=== PATIENT | male | born 1965 | race Caucasian/White ===

== ENCOUNTER 2017-12-22 16:11 | Inpatient (IN) | payer SELFPAY ==
[2017-12-22] VITALS (16 sets, daily range): BP systolic 74–129; BP diastolic 39–102
[~2017-12-22] VITALS: Ht 193 cm; Wt 115.3 kg
--- NOTE | ~2017-12-22 | PR ---
[place], [place] PROGRESS NOTE NAME: ANDERSON OGLESBY UNIT #: [id number] ROOM: [facility] DOCTOR: CINDY VINES MD BIRTHDATE: [birth year] DOS: 12/23/2017 SUBJECTIVE: Atrial fibrillation with rapid ventricular response. The patient is still tachycardic despite of receiving digoxin and metoprolol. OBJECTIVE: GENERAL APPEARANCE: The patient is alert and oriented x 3, in no visible distress. VITAL SIGNS: Blood pressure 108/41, heart rate 116 beats per minute, breathing 28 times per minute, temperature 98 degrees Fahrenheit. HEENT AND NECK: Exam within normal limits. CARDIOVASCULAR SYSTEM: Heart rate is regular in rate and rhythm. S1 and S2 normally audible. LUNGS: Clear to auscultation. ABDOMEN: Soft, nontender. No obvious organomegaly. Bowel sounds are present. EXTREMITIES: Without significant cyanosis or edema. IMPRESSION AND PLAN: 1. The patient with atrial fibrillation with rapid ventricular response. He is tachycardic even with digoxin and metoprolol. Medication is being adjusted by Dr. Lugo . The patient remains in ICU. 2. Free T4 level was normal. Normal serum electrolytes and chest x-ray are not showing congestive heart failure. CINDY VINES MD CM:PNTRANS [id number] CINDY VINES MD 12/24/17 0010 interface
--- NOTE | ~2017-12-22 | PR ---
[place], [place] PROGRESS NOTE NAME: ANDERSON OGLESBY UNIT #: [id number] ROOM: [facility] DOCTOR: JASMYN GARCIA,CINDY Nuñez BIRTHDATE: [birth year] DOS: 12/24/2017 SUBJECTIVE: The patient is feeling somewhat better, still remains in the ICU. OBJECTIVE: VITAL SIGNS: Blood pressure 112/69, breathing 20 times per minute, heart rate ranging between 80 to 110 beats per minute. GENERAL APPEARANCE: The patient is alert and oriented x 3, in no visible distress. HEENT AND NECK: Exam within normal limits. CARDIOVASCULAR SYSTEM: Heart rate is regular in rate and rhythm. S1 and S2 normally audible. LUNGS: Clear to auscultation. ABDOMEN: Soft, nontender. No obvious organomegaly. Bowel sounds are present. EXTREMITIES: Without significant cyanosis or edema. IMPRESSION: 1. The patient with atrial fibrillation with rapid ventricular response, status post cardioversion. He is in sinus rhythm now with some sinus dysrhythmia. 2. Severe cardiomyopathy which could be from tachycardia, left ventricular ejection fraction of only 15%. Case discussed with his assigner, Dr. Lugo, today. CINDY VINES MD CM:PNTRANS [phone] CINDY VINES MD 12/25/17 0019 interface
--- NOTE | ~2017-12-22 | WRIGHTHP ---
[place], [place] PATIENT HISTORY AND PHYSICAL EXAM NAME: ANDERSON OGLESBY [facility] #: [id number] UNIT #: [id number] ROOM: [facility] DOCTOR: CINDY VINES MD BIRTHDATE: [birth year] DOS: 12/22/2017 HISTORY OF PRESENT ILLNESS: The patient is a 52-year-old gentleman with a past medical history of congestive heart failure, atrial fibrillation for a short time many years ago, presented to my office with increasing shortness of breath with exertion and a chest x-ray result showing congestive heart failure. The patient was started on 20 mg of Lasix by different physicians, which he was taking. In the office, he had no complaints of chest pain, no fainting episode, no other GI or urinary symptoms, no palpitation. REVIEW OF SYSTEMS: LUNGS: Increased shortness of breath and dyspnea on exertion. GASTROINTESTINAL: No nausea, vomiting, diarrhea or constipation. CARDIOVASCULAR: No chest pain or palpitations. FAMILY HISTORY: Noncontributory. SOCIAL HISTORY: He is . Denies smoking cigarettes, alcohol and drug abuse. HOME MEDICATIONS: Lasix 20 mg a day. PHYSICAL EXAMINATION: GENERAL: Alert and oriented x 3, in no visible distress. HEENT AND NECK: Extraocular movements are intact. Sclerae are anicteric. Oral mucosa is moist and clean. No obvious facial weakness. Neck is supple without any lymphadenopathy. No thyromegaly. No JVD. No carotid arterial bruits. LUNGS: Clear to auscultation. No wheezing. No rhonchi. CARDIOVASCULAR SYSTEM: Heart rate irregularly irregular in rate and rhythm with a heart rate of about 200 beats per minute. ABDOMEN: Soft, nontender. No obvious organomegaly. Bowel sounds are present. No obvious herniation. EXTREMITIES: Without significant cyanosis or edema. Warm to touch. CENTRAL NERVOUS SYSTEM: Alert and oriented x 3. Cranial nerves II-XII are intact. Speech is normal. The patient is able to move all extremities. Normal muscle strength. Deep tendon reflexes are equal on both sides. Plantars were downgoing. LABORATORY DATA: Chest x-ray was normal. Normal serum electrolytes. Normal CBC. IMPRESSION AND PLAN: 1. The patient presenting with acute atrial fibrillation with rapid ventricular response, being controlled with IV verapamil and the patient also given IV Lopressor and started on anticoagulation with Lovenox. Dr. Lugo, the radio time salesperson is following the patient and he is being closely monitored in the ICU to control his heart rates. An echocardiogram will be checked. 2. Past history of generalized seizures when he was 7 years old, but not [place], [place] PATIENT HISTORY AND PHYSICAL EXAM NAME: ANDERSON OGLESBY UNIT #: [id number] ROOM: [facility] DOCTOR: CINDY VINES MD BIRTHDATE: [birth year] recently. CINDY VINES MD CM:HISPHYS:PATIENT HISTORY AND PHYSICAL EXAMINATION 05 32 CINDY VINES MD 12/22/172131 interface
--- NOTE | ~2017-12-22 | PR ---
[place], [place] PROGRESS NOTE NAME: ANDERSON OGLESBY UNIT #: [id number] ROOM: [facility] DOCTOR: OBI MALLOY MD BIRTHDATE: [birth year] DOS: SUBJECTIVE: The patient went back into rapid AFib yesterday afternoon, was transferred back to the ICU after amiodarone drip was started. This morning, he looks side and upset about what happened. He denies having any chest pains or palpitation. He does have some headaches post-cardioversion for which he did receive Demerol during the night. OBJECTIVE: VITAL SIGNS: Graphic trend shows blood pressure 80/50, pulse of 117, respirations 22, temperature 96.3. LUNGS: Diminished breath sounds. No wheezes, rales or rhonchi heard. HEART: Irregular heart rate in 120s. ABDOMEN: Obese, soft. EXTREMITIES: Without any edema. ASSESSMENT AND PLAN: 1. Chronic atrial fibrillation with rapid ventricular response, being managed with amiodarone and Lovenox and Toprol. The patient continues to be in atrial fibrillation, but hopefully will have a better rate control with the Cordarone. 2. Cardiomyopathy, possibly from underlying atrial fibrillation. He is already on BREE inhibitors and Aldactone and aspirin. 3. Ischemia workup to be done. The patient will have a cardiac catheterization sometime next week. OBI MALLOY MD CM:PNTRANS 0728 [id number] OBI MALLOY MD 12/26/17 1450 interface
[2017-12-22] MEDS ORDERED: LASIX40 MG PO (16:21)
[2017-12-22 16:29] LABS: BASO # 0.1 10*3/uL (0.0-0.1); BASO % 0.6 % (0.0-1.0); EOS # 0.2 10*3/uL (0.0-0.4); EOS % 2.1 % (1.0-4.0); HEMATOCRIT 49.7 % (42.0-52.0); HEMOGLOBIN 16.3 g/dl (14.0-18.0); LYMPH # 3.4 10*3/uL (1.3-4.4); LYMPH % 34.3 % (27.0-41.0); MEAN CELL VOLUME 84.5 fl (80.0-94.0); MEAN CORPUSCULAR HGB 27.7 pg (27.0-31.0); MEAN CORPUSCULAR HGB CONC 32.8 g/dl (33.0-37.0); MEAN PLATELET VOLUME 11.3 fl (9.6-12.3); MONO # 0.9 10*3/uL (0.1-1.0); MONO % 8.7 % (3.0-9.0); NEUT # 5.3 10*3/uL (2.3-7.9); NEUT % 54.1 % (47.0-73.0); PLATELET COUNT AUTOMATED 231 10*3/uL (130-400); RED BLOOD COUNT 5.88 10*6/uL (4.50-5.90); RED CELL DISTRI WIDTH 14.3 % (0-14.5); WHITE BLOOD COUNT 9.9 10*3/uL (4.8-10.8)
[2017-12-22 16:42] LABS: ACT PARTIAL THROMBO TIME 25.6 SECONDS (20.8-31.5)
[2017-12-22 16:45] LABS: ALBUMIN 4.4 gm/dl (3.1-4.5); ALKALINE PHOSPHATASE 101 U/L (45-117); BUN 21 mg/dl (7-24); CHLORIDE 105 mmol/L (98-107); CREATININE 1.03 mg/dL (0.70-1.30); POTASSIUM 4.2 mmol/L (3.5-5.1); SGOT/AST 21 IU/L (3-35); SGPT/ALT 32 U/L (12-78); SODIUM 138 mmol/L (136-145); TOTAL PROTEIN 7.6 gm/dL (6.4-8.2)
[2017-12-22 16:47] LABS: TROPONIN I < 0.015 ng/ml (<0.045)
[2017-12-23] VITALS: BP 100/61
[2017-12-23 04:00] VITALS: BP 95/71
[2017-12-23 07:53] VITALS: BP 98/80
[2017-12-23 12:00] VITALS: BP 108/60
[2017-12-23 16:00] VITALS: BP 108/41
[2017-12-23 20:00] VITALS: BP 119/72
[2017-12-24] VITALS: BP 117/82
[2017-12-24 04:00] VITALS: BP 98/74
[2017-12-24 08:00] VITALS: BP 111/78
[2017-12-24 08:18] LABS: BASO # 0.1 10*3/uL (0.0-0.1); BASO % 0.8 % (0.0-1.0); EOS # 0.2 10*3/uL (0.0-0.4); EOS % 2.7 % (1.0-4.0); HEMATOCRIT 50.5 % (42.0-52.0); HEMOGLOBIN 16.3 g/dl (14.0-18.0); LYMPH # 2.4 10*3/uL (1.3-4.4); LYMPH % 32.9 % (27.0-41.0); MEAN CELL VOLUME 85.3 fl (80.0-94.0); MEAN CORPUSCULAR HGB 27.5 pg (27.0-31.0); MEAN CORPUSCULAR HGB CONC 32.3 g/dl (33.0-37.0); MEAN PLATELET VOLUME 11.1 fl (9.6-12.3); MONO # 0.6 10*3/uL (0.1-1.0); MONO % 7.5 % (3.0-9.0); NEUT # 4.1 10*3/uL (2.3-7.9); PLATELET COUNT AUTOMATED 203 10*3/uL (130-400); RED BLOOD COUNT 5.92 10*6/uL (4.50-5.90); RED CELL DISTRI WIDTH 14.1 % (0-14.5); WHITE BLOOD COUNT 7.3 10*3/uL (4.8-10.8)
[2017-12-24 08:46] LABS: BUN 17 mg/dl (7-24); CHLORIDE 108 mmol/L (98-107); CREATININE 0.89 mg/dL (0.70-1.30); POTASSIUM 4.2 mmol/L (3.5-5.1); SODIUM 142 mmol/L (136-145)
[2017-12-24 12:00] VITALS: BP 119/62
[2017-12-24 16:00] VITALS: BP 112/69
[2017-12-24 20:00] VITALS: BP 116/70
[2017-12-25] VITALS: BP 112/73
[2017-12-25 04:00] VITALS: BP 104/79
[2017-12-25 08:00] VITALS: BP 109/71
[2017-12-25 16:00] VITALS: BP 104/64
[2017-12-25 20:00] VITALS: BP 104/83
[2017-12-25 21:45] VITALS: BP 120/88
[2017-12-26] VITALS (7 sets, daily range): BP systolic 80–145; BP diastolic 50–82
[2017-12-26 09:00] LABS: BASO % 0.5 % (0.0-1.0); EOS % 0.5 % (1.0-4.0); HEMOGLOBIN 16.3 g/dl (14.0-18.0); LYMPH # 1.7 10*3/uL (1.3-4.4); LYMPH % 18.9 % (27.0-41.0); MEAN CELL VOLUME 83.8 fl (80.0-94.0); MEAN CORPUSCULAR HGB 27.9 pg (27.0-31.0); MEAN CORPUSCULAR HGB CONC 33.3 g/dl (33.0-37.0); MEAN PLATELET VOLUME 10.8 fl (9.6-12.3); MONO # 0.5 10*3/uL (0.1-1.0); MONO % 6.1 % (3.0-9.0); NEUT # 6.5 10*3/uL (2.3-7.9); NEUT % 73.7 % (47.0-73.0); PLATELET COUNT AUTOMATED 206 10*3/uL (130-400); RED BLOOD COUNT 5.85 10*6/uL (4.50-5.90); WHITE BLOOD COUNT 8.8 10*3/uL (4.8-10.8)
[2017-12-26 09:33] LABS: BUN 18 mg/dl (7-24); CHLORIDE 105 mmol/L (98-107); POTASSIUM 4.2 mmol/L (3.5-5.1); SODIUM 138 mmol/L (136-145)
== END 2017-12-26 11:02 | disposition short-term general hospital (02) | DRG 308 ==
LOC: ED 16:11 → EDHOLD 16:55 → ICCU 16:55 → 4E 12-25 11:50 → ICCU 12-26 05:09
PROVIDERS: Emergency Medicine; Internal Medicine Cardiovascular Disease
PROC: 5A2204Z Restoration of Cardiac Rhythm, Single (ICD-10-PCS; principal; 2017-12-24)
PROC: B24BZZ4 Ultrasonography of Heart with Aorta, Transesophageal (ICD-10-PCS; principal; 2017-12-24)
DX: I48.0 Paroxysmal atrial fibrillation (principal); I50.43 Acute on chronic combined systolic (congestive) and diastolic (congestive) heart failure; I95.9 Hypotension, unspecified; I42.0 Dilated cardiomyopathy; Z79.899 Other long term (current) drug therapy; Z82.49 Family history of ischemic heart disease and other diseases of the circulatory system; Z79.01 Long term (current) use of anticoagulants

== ENCOUNTER 2018-01-07 16:13 | Inpatient (IN) | payer SELFPAY ==
[2018-01-07] VITALS (8 sets, daily range): BP systolic 70–121; BP diastolic 0–86
[~2018-01-07] VITALS: Ht 193 cm; Wt 107.1 kg
--- NOTE | ~2018-01-07 | PR ---
[place], [place] PROGRESS NOTE NAME: ANDERSON OGLESBY UNIT #: [id number] ROOM: 402 DOCTOR: OBI MALLOY MD BIRTHDATE: [birth year] DOS: 01/09/2018 SUBJECTIVE: The patient is about the same, does not have any new complaints. OBJECTIVE: VITAL SIGNS: Graphic trend shows a pressure of 92/54 at 4:00 a.m., pulse of 89, respirations 20, temperature 97. LUNGS: Diminished breath sounds, clear. HEART: Irregular. ABDOMEN: Obese. EXTREMITIES: Without any edema. ASSESSMENT AND PLAN: 1. Hypotension from medications, which is resolved. 2. Atrial fibrillation with rapid ventricular response, on digoxin and metoprolol. Dosage being adjusted by Cardiology. The patient to be discharged when Cardiology okays. OBI MALLOY MD CM:PNTRANS [phone] OBI MALLOY MD 01/09/18 2310 interface
--- NOTE | ~2018-01-07 | PR ---
[place], [place] PROGRESS NOTE NAME: ANDERSON [facility]GLESBY [facility] [id number] UNIT #: [id number] ROOM: 402 DOCTOR: KARUNA MOSQUEDA MD BIRTHDATE: [birth year] DOS: 01/10/2018 REASON FOR VISIT: Congestive heart failure and atrial fibrillation. HISTORY OF PRESENT ILLNESS: The patient is feeling better, still somewhat short of breath. He is not ambulating except to the bathroom. No PND, no orthopnea. No chest pain, no palpitation or dizziness. REVIEW OF SYSTEMS: Review of the 10 systems negative except as mentioned above. RHYTHM STRIPS: The patient in atrial fibrillation with occasional rapid ventricular rate. PHYSICAL EXAMINATION: VITAL SIGNS: Blood pressure 104/79, pulse 99, respiratory rate 16. GENERAL: Alert, comfortable, in no acute distress. HEENT: Pupils are round and equal. No jaundice. NECK: Supple. No distinct mass, no carotid bruit. CHEST: Symmetrical, nontender. LUNGS: A few scattered rhonchi, but good air entry bilaterally. HEART: Irregularly irregular, grade 1/6 systolic murmur. ABDOMEN: Benign, nontender. Bowel sounds normal. EXTREMITIES: Showed 1+ edema. Distal pulses palpable. SKIN: Warm and dry. No cyanosis, no clubbing. RECTAL: Deferred. GENITOURINARY: Deferred. MUSCULOSKELETAL: No joint tenderness or swelling. PSYCHIATRIC: The patient is alert, oriented with good mood and affect. NEUROLOGIC: The patient is alert, oriented. No focal neurologic deficit. Labs and medications reviewed. IMPRESSION: 1. Acute on chronic systolic heart failure, improving. 2. Coronary artery disease, status post LAD stent in November 2017. 3. Acute renal failure, resolved. 4. Atrial fibrillation with rapid ventricular rate. 5. Hypotension, mostly resolved. RECOMMENDATIONS: 1. Continue current medications. His Toprol was increased to 50 b.i.d. today. Continue his digoxin, aspirin plus Brilinta and Effient. Blood pressure is stable. Add low dose BREE inhibitor, lisinopril 2.5 mg. The patient was on lisinopril in the past before he was started on Entresto. 2. Possible discharge home tomorrow. 3. The risks and benefits of the LifeVest was discussed and the patient is interested. We will contact the LifeVest vendor due to his risk of sudden cardiac . 4. Potential discharge tomorrow, if her heart rate and blood pressure is stable. [place], [place] PROGRESS NOTE NAME: ANDERSON OGLESBY UNIT #: [id number] ROOM: 402 DOCTOR: JAYLIN GARCIA,KARUNA BIRTHDATE: [birth year] 5[address] Follow with Dr. Allen and also Dr. Lou in [place]. 6. Above treatment was discussed with the patient and his who is at bedside and all questions were answered. KARUNA MOSQUEDA MD CM:LAYLA 41 [phone] KARUNA MOSQUEDA MD 01/11/18 0252 interface
--- NOTE | ~2018-01-07 | DS ---
[place], [place] DISCHARGE SUMMARY NAME: ANDERSON OGLESBY [facility] [id number] UNIT #: [id number] ROOM: 402 DOCTOR: OBI MALLOY MD BIRTHDATE: [birth year] DOS: 01/11/2018 DIAGNOSES: 1. Hypotension from medications. 2. Acute kidney injury from medications. 3. Atrial fibrillation, chronic. 4. Cardiomyopathy with cardiac catheterization and stent placement. HOSPITAL COURSE: The patient is known to me. The patient was seen by Dr. Barahona in his office and was found to be quite hypotensive and was transferred to the Emergency Room. After being evaluated in the ER, he was found to have acute kidney injury, possibly from Entresto and he was admitted. After admission, most of his medications were discontinued and he was given IV fluids. His metoprolol was restarted at a later time because of his rapid heart rate and his chronic AFib. Digoxin is also ordered. The patient is stable and improving. He was continued in the Eliquis and Brilinta for the recent stent placement. Blood pressures normalized and his kidney functions improved, so on 01/09/2018 the patient is stable and was discharged to home to be followed up as an outpatient by Dr. Barahona and Cardiology. DISCHARGE MEDICATIONS: Eliquis 5 mg b.i.d., aspirin 81 daily, CoQ10 200 daily, Lasix 20 daily, metoprolol 100 b.i.d., simvastatin 40 daily and digoxin 0.125 mg daily. OBI MALLOY MD CM:DISCHARG [phone] OBI MALLOY MD 01/19/18 1520 interface
--- NOTE | ~2018-01-07 | PR ---
[place], [place] PROGRESS NOTE NAME: [facility]GL[facility]BY [id number] UNIT #: [id number] ROOM: 402 DOCTOR: KARUNA MOSQUEDA MD BIRTHDATE: [birth year] DOS: 01/11/2018 REASON FOR VISIT: Congestive heart failure and atrial fibrillation. HISTORY OF PRESENT ILLNESS: The patient is feeling better. He is ambulating; however, his heart rates are slightly higher with ambulation. Still somewhat short of breath, but much improved. No PND, no orthopnea. Edema is better. No chest pains, no palpitations or dizziness. REVIEW OF SYSTEMS: Review of the 10 systems negative except as mentioned above. RHYTHM STRIPS: The patient was in atrial fibrillation on the monitor with rates around 100. PHYSICAL EXAMINATION: VITAL SIGNS: Blood pressure 103/70, pulse 85, respiratory rate was 18 and weight 107.1 kilos. GENERAL: Alert, comfortable, in no acute distress. HEENT: Pupils round, equal. No jaundice. NECK: Supple, no distended neck veins, no carotid bruit. CHEST: Symmetrical, nontender. LUNGS: Clear to auscultation except few rhonchi. Good air entry bilaterally. HEART: Irregularly irregular, grade 1/6 systolic murmur. No S3, no palpable thrills. ABDOMEN: Benign, nontender. Bowel sounds normal. EXTREMITIES: Showed trace edema. Distal pulses are palpable. SKIN: Warm and dry. No cyanosis, no clubbing. RECTAL: Deferred. GENITOURINARY: Deferred. MUSCULOSKELETAL: No joint tenderness or swelling. NEUROLOGIC: The patient is alert, oriented. No focal neurologic deficit. PSYCHIATRIC: The patient is alert with good mood and affect. Labs and medications reviewed. IMPRESSIONS: 1. Acute on chronic systolic heart failure, improved. 2. 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 3. Acute renal failure, resolved. 4. Atrial fibrillation with rapid ventricular rate. 5. Hypotension, resolved. 6. Coronary artery disease, status post left anterior descending stent in November 2017. RECOMMENDATIONS: 1. Increase digoxin to 0.5 mg for rate control and give one additional dose of IV digoxin today. Continue Toprol 50 b.i.d. as well as aspirin b.i.d., Brilinta and Effient. 2. Since his blood pressure borderline, we could not add BREE or spironolactone at this time. [place], [place] PROGRESS NOTE NAME: ANDERSON OGLESBY [facility] [id number] UNIT #: [id number] ROOM: 402 DOCTOR: JAYLIN GARCIA,KARUNA BIRTHDATE: [birth year] 3. I spoke with Marito from [employer] and he will be fitted with a LifeVest prior to discharge. Possible discharge later today and he will follow up with Dr. Lou and also Dr. Allen. 4. There is no family at bedside. 5. Medication compliance and diet compliance was discussed. 6. The patient was advised by Dr. Evans to consider disability process since he may not able to work as effective as he did in the past due to severe left ventricular dysfunction. 7. There is no family at bedside at the time of my examination. KARUNA MOSQUEDA MD CM:PNTRANS [phone] KARUNA MOSQUEDA MD 02/01/18 0719 interface
--- NOTE | ~2018-01-07 | PR ---
[place], [place] PROGRESS NOTE NAME: ANDERSON OGLESBY UNIT #: [id number] ROOM: 402 DOCTOR: OBI MALLOY MD BIRTHDATE: [birth year] DOS: 01/11/2018 SUBJECTIVE: The patient is doing fine this morning. Appreciate Dr. Guzman's input. OBJECTIVE: VITAL SIGNS: Blood pressure is 118/72, pulse of 88, respirations 16, temperature 97.5. LUNGS: Clear. HEART: Irregular. ABDOMEN: Obese, soft. EXTREMITIES: Without any edema. ASSESSMENT AND PLAN: 1. Hypotension from Entresto resulting in acute renal failure from acute tubular necrosis, this has resolved. Kidney functions are back to normal. 2. Atrial fibrillation with rapid ventricular response, on digoxin and metoprolol. Also suggested to add a low dose of lisinopril, which will be given. 3. Ischemic cardiomyopathy, status post catheterization and stent placement, stable without any evidence of congestive heart failure. OBI MALLOY MD CM:PNTRANS [id number] 1348 OBI MALLOY MD 01/11/18 1541 interface
--- NOTE | ~2018-01-07 | WRIGHTHP ---
[place], [place] PATIENT HISTORY AND PHYSICAL EXAM NAME: ANDERSON OGLESBY [facility] #: [id number] UNIT #: [id number] ROOM: [facility] DOCTOR: OBI MALLOY MD BIRTHDATE: [birth year] DOS: 01/07/2018 HISTORY OF PRESENT ILLNESS: This patient is 52 years old. The patient was admitted to the hospital 2 weeks ago with AFib with rapid ventricular response and was found to have severe dilated ischemic cardiomyopathy, was transferred to [place] and had a cardiac catheterization performed. A stent was placed in 1 blood vessel. He does not know the details and no records available. He was discharged after 3 days. He went back to see his board design engineer and was placed on Entresto about a week ago. He has been increasingly weak for the last few days and yesterday morning, he really could not walk around at all and he was so tired, so decided finally to go see Dr. Barahona, was found to have a systolic blood pressure in the low 70s and so was sent to the emergency room for an admission. He denies having any fever or chills. Denies having any nausea or emesis. Denies having any diarrhea, denies having any fever or chills. PAST MEDICAL HISTORY: 1. Severe ischemic cardiomyopathy with EF of about 10%. 2. Coronary artery disease with history of recent stenting. 3. Chronic atrial fibrillation. MEDICATIONS: He was currently on were Eliquis 5 b.i.d., aspirin 81 daily, metoprolol 100 b.i.d., Entresto, Lasix, spironolactone 25 daily, Brilinta 90 daily, CoQ10. SOCIAL HISTORY: Nonsmoker. PHYSICAL EXAMINATION: GENERAL: He is awake and alert and oriented this morning. VITAL SIGNS: Graphic trend shows a pressure of 85/52, pulse of 104, respirations 20, temperature 96.6. LUNGS: Diminished breath sounds. HEART: Irregular heart rate in the low 100s. ABDOMEN: Soft, scaphoid. EXTREMITIES: Without any edema. LABORATORY DATA: At the time of admission showed WBC count of 12.6, hemoglobin 6.4, hematocrit normal, hemoglobin normal. Glucose 97, BUN 37, creatinine 1.87, sodium 131, GFR 38. ASSESSMENT AND PLAN: 1. Hypotension from ATN causing acute kidney injury. The patient is placed on IV fluids. His acute kidney injury most likely from medications. Entresto and spironolactone will be discontinued as well as metoprolol. With the slow IV hydration, the pressures have come up this morning, so we will restart a low dose of Coreg for his chronic AFib, one dose of digoxin will also be given this morning. 2. Chronic atrial fibrillation, on Eliquis, which will be continued. Add Coreg. If cardiology feels stable, the patient can be discharged later on today. The patient is advised to walk around and make sure that he is not experiencing any dizziness. [place], [place] PATIENT HISTORY AND PHYSICAL EXAM NAME: ANDERSON OGLESBY UNIT #: [id number] ROOM: [facility] DOCTOR: OBI MALLOY MD BIRTHDATE: [birth year] 3. Recent coronary artery disease, status post stenting. Continue Brilinta. OBI MALLOY MD CM:HISPHYS:PATIENT HISTORY AND PHYSICAL EXAMINATION 0740 OBI MALLOY MD 01/08/18 0951 interface
--- NOTE | ~2018-01-07 | PR ---
[place], [place] PROGRESS NOTE NAME: ANDERSON OGLESBY UNIT #: [id number] ROOM: 402 DOCTOR: OBI MALLOY MD BIRTHDATE: [birth year] DOS: 01/10/2018 SUBJECTIVE: The patient is about the same. Does not have any new complaints. OBJECTIVE: VITAL SIGNS: Graphic trend shows a pressure 104/79, pulse of 56, respirations 18, temperature 97.3. LUNGS: Diminished breath sounds, clear. HEART: Irregular. ABDOMEN: Obese, soft and nontender. EXTREMITIES: Without any edema. LABORATORY DATA: BMP: Glucose, BUN and creatinine have normalized. Electrolytes are normal. Digoxin 0.97. ASSESSMENT AND PLAN: 1. Hypotension, possibly from Entresto with acute kidney injury, which seems to have resolved after the medication was discontinued. 2. Chronic atrial fibrillation with rapid ventricular response, controlled on the current medications. We will wait for Cardiology to start on discharge planning. OBI MALLOY MD CM:PNTRANS [phone] OBI MALLOY MD 01/10/182201 interface
[~2018-01-07 16:13] MED LIST: LASIX40 MG PO
[2018-01-07 16:42] LABS: BASO # 0.1 10*3/uL (0.0-0.1); BASO % 0.5 % (0.0-1.0); EOS # 0.1 10*3/uL (0.0-0.4); HEMATOCRIT 51.8 % (42.0-52.0); HEMOGLOBIN 17.7 g/dl (14.0-18.0); MEAN CELL VOLUME 80.9 fl (80.0-94.0); MEAN CORPUSCULAR HGB 27.7 pg (27.0-31.0); MEAN CORPUSCULAR HGB CONC 34.2 g/dl (33.0-37.0); MEAN PLATELET VOLUME 11.4 fl (9.6-12.3); MONO % 7.9 % (3.0-9.0); NEUT # 8.4 10*3/uL (2.3-7.9); NEUT % 66.4 % (47.0-73.0); PLATELET COUNT AUTOMATED 240 10*3/uL (130-400); RED CELL DISTRI WIDTH 13.6 % (0-14.5); WHITE BLOOD COUNT 12.6 10*3/uL (4.8-10.8)
[2018-01-07 16:57] LABS: ALBUMIN 4.5 gm/dl (3.1-4.5); CREATININE 1.87 mg/dL (0.70-1.30); POTASSIUM 4.8 mmol/L (3.5-5.1); TOTAL PROTEIN 7.8 gm/dL (6.4-8.2)
[2018-01-07] MEDS ORDERED: ACETAMINOPHEN325 M2 PO (17:41)
[2018-01-07] MEDS ORDERED: ELIQUIS5 M1 PO (17:41)
[2018-01-07] MEDS ORDERED: ASPIRIN ADULT L81 M1 PO (17:42)
[2018-01-07] MEDS ORDERED: CO Q10100 MG PO (17:42)
[2018-01-07] MEDS ORDERED: FISH OIL 500 M1 EAC1 PO (17:43)
[2018-01-07] MEDS ORDERED: FUROSEMIDE20 M1 PO (17:43)
[2018-01-07] MEDS ORDERED: ENTRESTO 49 MG1 EACH PO (17:44)
[2018-01-07] MEDS ORDERED: METOPROLOL SUC100 M1 PO (17:44)
[2018-01-07] MEDS ORDERED: BRILINTA90 M1 PO (17:45)
[2018-01-07] MEDS ORDERED: SIMVASTATIN40 MG PO (17:45)
[2018-01-07] MEDS ORDERED: SPIRONOLACTONE25 MG PO (17:45)
[2018-01-08] VITALS: BP 88/57
[2018-01-08 04:00] VITALS: BP 78/60; BP 85/52
[2018-01-08 05:35] LABS: CHLORIDE 106 mmol/L (98-107); CREATININE 1.01 mg/dL (0.70-1.30); POTASSIUM 4.2 mmol/L (3.5-5.1); SODIUM 137 mmol/L (136-145)
[2018-01-08 05:38] LABS: BUN 25 mg/dl (7-24)
[2018-01-08 05:54] LABS: BASO # 0.1 10*3/uL (0.0-0.1); BASO % 0.7 % (0.0-1.0); EOS # 0.2 10*3/uL (0.0-0.4); EOS % 2.8 % (1.0-4.0); HEMATOCRIT 52.9 % (42.0-52.0); HEMOGLOBIN 17.4 g/dl (14.0-18.0); LYMPH # 2.6 10*3/uL (1.3-4.4); LYMPH % 35.4 % (27.0-41.0); MEAN CORPUSCULAR HGB 27.3 pg (27.0-31.0); MEAN CORPUSCULAR HGB CONC 32.9 g/dl (33.0-37.0); MEAN PLATELET VOLUME 11.5 fl (9.6-12.3); MONO # 0.7 10*3/uL (0.1-1.0); MONO % 9.9 % (3.0-9.0); NEUT # 3.8 10*3/uL (2.3-7.9); NEUT % 50.9 % (47.0-73.0); PLATELET COUNT AUTOMATED 203 10*3/uL (130-400); RED BLOOD COUNT 6.37 10*6/uL (4.50-5.90); RED CELL DISTRI WIDTH 13.9 % (0-14.5); WHITE BLOOD COUNT 7.4 10*3/uL (4.8-10.8)
[2018-01-08] MEDS ORDERED: COREG3.125 MG PO (07:07)
[2018-01-08 08:00] VITALS: BP 95/60
[2018-01-08 12:00] VITALS: BP 102/64
[2018-01-08 16:00] VITALS: BP 97/64
[2018-01-08 20:00] VITALS: BP 95/59
[2018-01-09] VITALS: BP 90/60
[2018-01-09 04:00] VITALS: BP 92/54
[2018-01-09 08:00] VITALS: BP 94/60
[2018-01-09 12:00] VITALS: BP 92/60
[2018-01-09 16:00] VITALS: BP 102/69
[2018-01-09 20:00] VITALS: BP 102/77; BP 112/62
[2018-01-10] VITALS (9 sets, daily range): BP systolic 98–121; BP diastolic 64–97
[2018-01-10 07:42] LABS: BUN 17 mg/dl (7-24); CHLORIDE 106 mmol/L (98-107); CREATININE 0.91 mg/dL (0.70-1.30); POTASSIUM 4.3 mmol/L (3.5-5.1); SODIUM 138 mmol/L (136-145)
[2018-01-10 07:52] LABS: DIGOXIN 0.97 ng/ml (0.8-2.0)
[2018-01-11 05:35] VITALS: BP 118/72
[2018-01-11 08:00] VITALS: BP 103/71
[2018-01-11] MEDS ORDERED: HOMEMED PO (08:33)
[2018-01-11] MEDS ORDERED: Lanoxin PO (08:33)
[2018-01-11] MEDS ORDERED: TOPROL XL50 M1 PO (08:33)
[2018-01-11] MEDS ORDERED: ZESTRIL2.5 MG PO (08:35)
[2018-01-11 12:00] VITALS: BP 111/82
[2018-01-11 16:00] VITALS: BP 96/76
== END 2018-01-11 18:41 | disposition home or self-care (01) | DRG 682 ==
LOC: ED 16:13 → 4E 17:27 → EDHOLD 17:27 → ICCU 17:55 → 4E 01-09 13:39
PROVIDERS: Family Medicine; Internal Medicine; Internal Medicine Cardiovascular Disease
DX: N17.0 Acute kidney failure with tubular necrosis (principal); I50.23 Acute on chronic systolic (congestive) heart failure; I42.0 Dilated cardiomyopathy; I48.2 Chronic atrial fibrillation; I95.2 Hypotension due to drugs; N14.2 Nephropathy induced by unspecified drug, medicament or biological substance; I25.10 Atherosclerotic heart disease of native coronary artery without angina pectoris; E78.5 Hyperlipidemia, unspecified; I25.5 Ischemic cardiomyopathy; T78.8XXA Other adverse effects, not elsewhere classified, initial encounter; X58.XXXA Exposure to other specified factors, initial encounter; E66.9 Obesity, unspecified; Z79.899 Other long term (current) drug therapy; Z79.82 Long term (current) use of aspirin; Z91.14 Patient's other noncompliance with medication regimen; Z82.49 Family history of ischemic heart disease and other diseases of the circulatory system; Z68.28 Body mass index [BMI] 28.0-28.9, adult

== ENCOUNTER 2019-04-19 14:52 | Inpatient (IN) | payer OTHER ==
[~2019-04-19] VITALS: Wt 122.5 kg
--- NOTE | ~2019-04-19 | DS ---
[place], [place] DISCHARGE SUMMARY NAME: ANDERSON OGLESBY [facility] #: [id number] UNIT #: [id number] ROOM: [facility] DOCTOR: CINDY VINES MD BIRTHDATE: [birth year] DOS: 04/21/2019 DISCHARGE DIAGNOSES: 1. Acute atrial fibrillation with rapid ventricular response. 2. Systolic type, chronic congestive heart failure with 55% left ventricular ejection fraction. 3. Coronary artery disease of the left anterior descending artery disease, status post stenting on 12/28/2017. 4. Otherwise, nonischemic cardiomyopathy with 15% left ventricular ejection fraction, now improved to 55%. HOSPITAL COURSE: The patient presented to my office, feeling very sick and tired and I found him in atrial fibrillation with rapid ventricular response, heart rate ranging between 150-200 beats per minute. The patient was immediately sent to ICU for admission and started on IV Cardizem, which slowed down his heart rate and later on before he was going to be cardioverted in the ICU, he spontaneously returned to normal sinus rhythm at a heart rate of 70-80 beats per minute. The patient was watched for another 24 hours and he has remained in sinus rhythm. Hammerer Tab decided to keep the same medications and the beta kenneth that he is taking. IV Cardizem was discontinued earlier for hypotension. The patient is completely asymptomatic and will be discharged to home to follow up at the office with me in less than a week. Recurrent atrial fibrillation. The patient is already anticoagulated with apixaban and remains on beta kenneth, reevaluated by Cardiology. History of coronary artery disease of the [place] vessels without chest pains. The patient had stenting of LAD in the past. Chronic systolic type congestive heart failure, compensated. The patient did have some shortness of breath earlier, which has resolved. Fatigue apparently secondary to atrial fibrillation with rapid ventricular response has resolved. The patient is feeling much better after treatment in the ICU and after clearance by Cardiology, will be discharged to home and will see me back in less than a week. Thyroid function tests were normal. Normal serum electrolytes. Blood sugar of 107, no leukocytosis. Normal CBC. DISCHARGE MANAGEMENT: Spironolactone 25 mg a day, metoprolol 50 mg b.i.d., losartan 25 mg daily, aspirin 81 mg a day, apixaban 5 mg b.i.d. Follow up at the office with me in less than a week. [place], [place] DISCHARGE SUMMARY NAME: ANDERSON OGLESBY UNIT #: [id number] ROOM: [facility] DOCTOR: CINDY VINES MD BIRTHDATE: [birth year] CINDY VINES MD CM:HOLLY [id number] CINDY VINES MD 04/21/19 1557 interface
--- NOTE | ~2019-04-19 | WRIGHTHP ---
[place], [place] PATIENT HISTORY AND PHYSICAL EXAM NAME: ANDERSON OGLESBY [facility] #: [id number] UNIT #: [id number] ROOM: [facility] DOCTOR: CINDY VINES MD BIRTHDATE: [birth year] DOS: HISTORY OF PRESENT ILLNESS: The patient presented to my office feeling quite sick, weak, tired and unwell with some shortness of breath and palpitations. The patient was found to have a heart rate ranging between 150-200 beats per minute and irregular heart rate. The patient was sent to ICU for admission and further management. In the ICU, the patient was started on IV Cardizem infusion at 5 mg an hour and a Cardiology consult. Cardiac enzymes were ordered. The patient's heart rate is still ranging between 100-200 beats per minute and he has become hypotensive with IV Cardizem infusion. Cardioversion is being considered. No chest pains. No other GI or urinary symptoms. PAST MEDICAL HISTORY: The patient with nonischemic cardiomyopathy with left ventricular ejection fraction of 55%. Coronary artery disease with stenting of LAD and on 12/28/2017. REVIEW OF SYSTEMS: RESPIRATORY: Some shortness of breath. GASTROINTESTINAL: No nausea, vomiting, diarrhea, constipation. CARDIOVASCULAR SYSTEM: Palpitations and feeling very tired and fatigued. FAMILY HISTORY: Noncontributory. ALLERGIES: No known drug allergies. HOME MEDICATIONS: The patient was taking apixaban, aspirin, furosemide, losartan, metoprolol, spironolactone. PHYSICAL EXAMINATION: GENERAL: Alert, oriented x 3, in no visible distress. Obesity with BMI of 32.8. HEENT AND NECK: Extraocular movements are intact. Sclerae are anicteric. Oral mucosa is moist and clean. No obvious facial weakness. Neck is supple without any lymphadenopathy. No thyromegaly. No JVD. No carotid arterial bruits. LUNGS: Clear to auscultation. No wheezing. No rhonchi. CARDIOVASCULAR SYSTEM: On cardiac auscultation, the patient had an irregularly irregular heart rate, rapid with a heart rate of 155 beats per minute. ABDOMEN: Soft, nontender. No obvious organomegaly. Bowel sounds are present. No obvious herniation. EXTREMITIES: Without significant cyanosis or edema. Warm to touch. CENTRAL NERVOUS SYSTEM: Alert and oriented x 3. Cranial nerves II-XII are intact. Speech is normal. The patient is able to move all extremities. Normal muscle strength. Deep tendon reflexes are equal on both sides. Plantars were downgoing. LABORATORY DATA: Cardiac enzymes are negative. Free T4, TSH normal. Normal serum electrolytes, bilirubin, liver enzymes, normal CBC. [place], [place] PATIENT HISTORY AND PHYSICAL EXAM NAME: ANDERSON OGLESBY UNIT #: [id number] ROOM: [facility] DOCTOR: CINDY VINES MD BIRTHDATE: [birth year] IMPRESSION: 1. The patient with nonischemic cardiomyopathy, now with left ventricular ejection fraction and had improved to 55% according to professional fighter. 2. Acute atrial fibrillation with rapid ventricular response. The patient is being managed in the ICU with IV Cardizem, which had to be stopped because of hypotension and cardioversion is being considered by professional fighter. 3. Previous history of atrial fibrillation with rapid ventricular response. 4. History of coronary artery disease with stenting of LAD in 11/2017. 5. History of systolic type congestive heart failure, compensated and shortness of breath. 6. Chronic systolic type compensated congestive heart failure. 7. Previous history of atrial fibrillation with rapid ventricular response. 8. Coronary artery disease with stenting of LAD and on 12/28/2017. The patient is being closely monitored in the ICU under supervision of Cardiology. CINDY VINES MD CM:HISPHYS:PATIENT HISTORY AND PHYSICAL EXAMINATION 1045 [id number] CINDY VINES MD 04/20/19 1103 interface
--- NOTE | ~2019-04-19 | PR ---
[place], [place] PROGRESS NOTE NAME: ANDERSON OGLESBY UNIT #: [id number] ROOM: [facility] DOCTOR: JAYLIN GARCIA,KARUNA BIRTHDATE: [birth year] DOS: 04/20/2019 CARDIOLOGY PROGRESS NOTE REASON FOR VISIT: Atrial fibrillation, RVR. HISTORY OF PRESENT ILLNESS: The patient is feeling better. He is rate controlled overnight and is off the Cardizem. Again this morning went back to rapid ventricular rate, hence Cardizem was restarted. Denies any chest pain, shortness of breath, no palpitations, no dizziness, no PND, no orthopnea. No cough or hemoptysis. REVIEW OF SYSTEMS: Review of 10 systems negative except as mentioned above. PHYSICAL EXAMINATION: VITAL SIGNS: Blood pressure 109/74, pulse 120, respiratory rate 20, weight 122 kilos. RHYTHM STRIPS: The patient in atrial fibrillation with rapid ventricular rate. GENERAL: Alert, comfortable, in no acute distress. HEAD AND NECK: Pupils are round and equal, no jaundice. NECK: Supple, no distended neck veins, no carotid bruit. CHEST: Symmetrical, nontender. LUNGS: Clear to auscultation bilaterally. HEART: Irregularly irregular, tachycardic, grade 1/6 systolic murmur. ABDOMEN: Benign, nontender. Bowel sounds normal. EXTREMITIES: Showed trace to 1+ edema. Distal pulses palpable. SKIN: Warm and dry. No cyanosis, no clubbing. RECTAL: Deferred. GENITOURINARY: Deferred. NEUROLOGIC: Alert with no focal neurologic deficit. DIAGNOSES: 1. Atrial fibrillation with rapid ventricular rate. 2. Coronary artery disease, status post left anterior descending stent. 3. History of cardiomyopathy. Ejection fraction is 54% by cardiac MRI in 04/2018. 4. Mild valvular heart disease. 5. Non-morbid obesity. RECOMMENDATIONS: 1. Continue current medications. 2. Wean IV Cardizem and start him on p.o. beta blockers. I would recommend DC cardioversion and risks and benefits discussed. The patient is agreeable to proceed with DC cardioversion due to his persistent atrial fibrillation with rapid ventricular rate. No family at bedside at the time of examination. Tentative discharge tomorrow. [place], [place] PROGRESS NOTE NAME: ANDERSON OGLESBY UNIT #: [id number] ROOM: [facility] DOCTOR: JAYLIN GARCIA,KARUNA BIRTHDATE: [birth year] KARUNA MOSQUEDA MD CM:[id number] [id number] KARUNA MOSQUEDA MD 04/20/19 2336 interface
--- NOTE | ~2019-04-19 | EKG ---
[place], [place] ELECTROCARDIOGRAM REPORT NAME: ANDERSON OGLESBY UNIT #: [id number] ROOM: [facility] DOCTOR: REUBEN DRAFT REPORT BIRTHDATE: [birth year] [facility] Test Date: 2019-04-20 Test Time: 10:33:09 Pat Name: ANDERSON OGLESBY Department: Room: [place] [address] Gender: M Lumber Carrier: : 1965 Requested By: CINDY VINES Order Number: [id number] Reading MD: Shantelle Guzman Measurements Intervals [place] Rate: 57 P: 57 FL: 172 QRS: -9 QRSD: 104 T: 63 QT: 393 QTc: 383 Interpretive Statements Sinus rhythm Atrial premature complex Electronically Signed On 04-21-2019 12:11:52 PDT by Shantelle Guzman CM:EKGRPT:ELECTROCARDIOGRAM REPORT 1033 [id number] CINDY VINES MD EPIPHANY DRAFT REPORT CINDY VINES MD
--- NOTE | ~2019-04-19 | PR ---
[place], [place] PROGRESS NOTE NAME: ANDERSON OGLESBY UNIT #: [id number] ROOM: [facility] DOCTOR: KARUNA MOSQUEDA MD BIRTHDATE: [birth year] DOS: 04/21/2019 REASON FOR VISIT: Atrial fibrillation, coronary artery disease. SUBJECTIVE: The patient is maintaining sinus rhythm. Denies any chest pain, shortness breath, palpitation, no dizziness, no nausea or vomiting. No fever and chills. No bladder or bowel complaints. No neurologic complaints. REVIEW OF SYSTEMS: Review of 8 systems negative except as mentioned above. PHYSICAL EXAMINATION: VITAL SIGNS: Blood pressure 90/55, pulse 63, respiratory rate 16. The patient in sinus rhythm. GENERAL: Alert, comfortable, in no acute distress. HEAD AND NECK: Supple. No distended neck veins. No carotid bruit. CHEST: Symmetrical, nontender. LUNGS: Clear to auscultation bilaterally. HEART: Regular rhythm, no S3, no palpable thrills. ABDOMEN: Benign, nontender. Bowel sounds normal. EXTREMITIES: Showed no edema. Distal pulses palpable. SKIN: Warm and dry. No cyanosis, no clubbing. RECTAL: Deferred. GENITOURINARY: Deferred. NEUROLOGIC: Alert with no focal neurologic deficit. MEDICATIONS AND LABS: Reviewed. IMPRESSION: 1. Paroxysmal atrial fibrillation with rapid ventricular rate, currently in sinus rhythm. 2. History of coronary artery disease, status post stents. 3. History of left ventricular dysfunction. Currently, normal left ventricular function. 4. Non-morbid obesity. RECOMMENDATIONS: Continue current medication. If his vitals and his blood pressure are stable, he can be discharged home today. He will follow with ____ per scheduled visit. Compliance with medications and diet was discussed. No family at bedside at the time of examination. [place], [place] PROGRESS NOTE NAME: JEN OGLESBYN Magen UNIT #: [id number] ROOM: [facility] DOCTOR: KARUNA MOSQUEDA MD BIRTHDATE: [birth year] KARUNA MOSQUEDA MD CM:PNTRANS [id number] [phone] KARUNA MOSQUEDA MD 04/22/19 0516 interface
--- NOTE | ~2019-04-19 | CON ---
[place], [place] REPORT OF CONSULTATION NAME: ANDERSON OGLESBY UNIT #: [id number] ROOM: [facility] DOCTOR: JAYLIN GARCIA,KARUNA BIRTHDATE: [birth year] DOS: 04/19/2019 REASON FOR CONSULTATION: Atrial fibrillation with rapid ventricular rate. HISTORY OF PRESENT ILLNESS: The patient is a 54-year-old gentleman with a history of paroxysmal atrial fibrillation, cardiomyopathy, coronary artery disease, seen by Dr. Barahona and the patient is known to have significant tachycardia with rates as high as 160-200 beats per minute and hence he was admitted to the hospital directly from the office and Cardiology consult for his tachycardia. The patient noted to be in atrial fibrillation with rapid ventricular rate on the monitor. Complaining of some "heart palpitations" and not feeling well, but no dizziness or syncope. No chest pains, no shortness of breath, no palpitations, no PND, no orthopnea. The patient is compliant with medications and he takes Eliquis for anticoagulation, beta blockers and losartan for his cardiomyopathy. He follows with Dr. Allen in [place] for his CHF and coronary artery disease and atrial fibrillation. His amiodarone was discontinued as well as his Brilinta. REVIEW OF SYSTEMS: Review of 10 systems negative except as mentioned above. PAST MEDICAL HISTORY: 1. Paroxysmal atrial fibrillation. 2. Nonischemic cardiomyopathy. 3. Coronary artery disease, status post LAD stent in November 2017. 4. Valvular heart disease. PAST SURGICAL HISTORY: History of cardioversion. SOCIAL HISTORY: The patient does not smoke, does not drink, does not use illicit drugs. FAMILY HISTORY: Father in his 50s from heart attack. Mother from heart failure. ALLERGIES: No known drug allergies. HOME MEDICATIONS: Reviewed. PHYSICAL EXAMINATION: VITAL SIGNS: Blood pressure 120/77, pulse 140-160, respiratory rate 18. GENERAL: Alert, comfortable, in no acute distress. HEENT: Pupils are round and equal. No jaundice. NECK: Supple, no distended neck veins, no carotid bruit. CHEST: Symmetrical, nontender. LUNGS: Clear to auscultation. HEART: Irregularly irregular, tachycardic, grade 1/6 systolic murmur. ABDOMEN: Benign, nontender. Bowel sounds normal. EXTREMITIES: Showed trace to 1+ edema. Distal pulses palpable. SKIN: Warm and dry. No cyanosis, no clubbing. RECTAL: Deferred. [place], [place] REPORT OF CONSULTATION NAME: ANDERSON OGLESBY UNIT #: [id number] ROOM: [facility] DOCTOR: JAYLIN GARCIA,KARUNA BIRTHDATE: [birth year] GENITOURINARY: Deferred. NEUROLOGIC: Alert, attentive, focal neurologic deficit. REVIEW OF THE DIAGNOSTIC TESTS: Rhythm strip showed atrial fibrillation with rapid ventricular rate. His labs pending. EKG pending. IMPRESSION: 1. Atrial fibrillation with rapid ventricular rate. 2. History of paroxysmal atrial fibrillation, status post DC cardioversion x 3. 3. History of nonischemic cardiomyopathy, ejection fraction 10-15%, recent ejection fraction is around 50s per patient. 4. Coronary artery disease, status post left anterior descending stent in 12/28/2017. History of mild valvular heart disease. 5. History of hypertension. 6. History of non-morbid obesity. RECOMMENDATIONS: 1. Start IV Cardizem and titrate for his blood pressure and heart rates. 2. Continue his metoprolol for rate control. 3. Continue Eliquis for oral anticoagulation. 4. Continue rest of home medications. The patient stays in atrial fibrillation. We will recommend DC cardioversion tomorrow. The patient was on uninterrupted oral anticoagulation for at least a month and hence she does not need a ROLF in case of any DC cardioversion. Above recommendation discussed with the patient. No family at bedside at the time of my examination. KARUNA MOSQUEDA MD CM:CONSTR:REPORT OF CONSULTATION 99 04/20/19 0246 interface
[~2019-04-19 14:52] MED LIST changes: +ACETAMINOPHEN325 M2 PO; +ASPIRIN ADULT L81 M1 PO; +BRILINTA90 M1 PO; +CO Q10100 MG PO; +COREG3.125 MG PO; +ELIQUIS5 M1 PO; +ENTRESTO 49 MG1 EACH PO; +FISH OIL 500 M1 EAC1 PO; +FUROSEMIDE20 M1 PO; +HOMEMED PO; +Lanoxin PO; +METOPROLOL SUC100 M1 PO; +SIMVASTATIN40 MG PO; +SPIRONOLACTONE25 MG PO; +TOPROL XL50 M1 PO; +ZESTRIL2.5 MG PO
--- NOTE | 2019-04-19 15:27 | NUR ---
A 54, admitted to [facility], under the services of Dr. JASMYN GARCIA,CINDY Nuñez with a diagnosis of AFIB. Chief complaint is FATIGUE AND HEART RACING. Patient arrived via wheel chair from [place]. Monitor applied. Initial assessment completed. Vital signs taken and recorded. DR. JASMYN GARCIA,CINDY Nuñez notified of admission to the unit. Orders received. See assessment for past medical history, medications and allergies. Patient and/or family oriented to unit. [facility] visitation policy reviewed. Clothing/patient valuable form completed. RAO AGUILAR
[2019-04-19 15:29] VITALS: BP 140/103
[2019-04-19 15:31] VITALS: BP 122/87
[2019-04-19 16:00] VITALS: BP 132/82
[2019-04-19] MEDS ORDERED: METOPROLOL SUCC50 M1 PO (16:10)
[2019-04-19] MEDS ORDERED: ALDACTONE25 MG PO (16:10)
[2019-04-19] MEDS ORDERED: ELIQUIS5 M1 PO (16:12)
[2019-04-19] MEDS ORDERED: LOSARTAN POTASS25 M1 PO (16:12)
[2019-04-19] MEDS ORDERED: ASPIRIN ADULT L81 M1 PO (16:13)
[2019-04-19 16:50] LABS: BASO # 0.1 10*3/uL (0.0-0.1); BASO % 0.7 % (0.0-1.0); EOS # 0.2 10*3/uL (0.0-0.4); EOS % 2.2 % (1.0-4.0); HEMATOCRIT 46.2 % (42.0-52.0); HEMOGLOBIN 15.7 g/dl (14.0-18.0); LYMPH # 2.6 10*3/uL (1.3-4.4); LYMPH % 28.5 % (27.0-41.0); MEAN CELL VOLUME 84.6 fl (80.0-94.0); MEAN CORPUSCULAR HGB 28.8 pg (27.0-31.0); MEAN PLATELET VOLUME 10.2 fl (9.6-12.3); MONO # 0.8 10*3/uL (0.1-1.0); MONO % 8.4 % (3.0-9.0); NEUT # 5.4 10*3/uL (2.3-7.9); NEUT % 59.9 % (47.0-73.0); PLATELET COUNT AUTOMATED 208 10*3/uL (130-400); RED BLOOD COUNT 5.46 10*6/uL (4.50-5.90); WHITE BLOOD COUNT 9.1 10*3/uL (4.8-10.8)
[2019-04-19 17:10] LABS: ALKALINE PHOSPHATASE 80 U/L (45-117); BUN 17 mg/dl (7-24); CHLORIDE 108 mmol/L (98-107); CREATININE 1.02 mg/dL (0.70-1.30); POTASSIUM 3.9 mmol/L (3.5-5.1); SGOT/AST 21 IU/L (3-35); SGPT/ALT 42 U/L (12-78); SODIUM 139 mmol/L (136-145); TOTAL PROTEIN 7.4 gm/dL (6.4-8.2)
[2019-04-19 17:12] LABS: TROPONIN I < 0.015 ng/ml (<0.045)
[2019-04-19 18:00] VITALS: BP 119/86
--- NOTE | 2019-04-19 19:57 | NUR ---
TYLENOL PO GIVEN PER DRS ORDERS FOR COMPLAINTS OF MILD HEADACHE, 12/09 RN WILL MONITOR FOR EFFECTIVENESS
[2019-04-19 20:00] VITALS: BP 99/72
--- NOTE | 2019-04-19 21:30 | NUR ---
PATIENT STATES HE STILL HAS MILD HEADACHE DESPITE EARLIER TYLENOL. RN WILL MONITOR
[2019-04-19 22:00] VITALS: BP 99/66
[2019-04-20] VITALS (9 sets, daily range): BP systolic 92–121; BP diastolic 59–75
--- NOTE | 2019-04-20 01:15 | NUR ---
PATIENTS IV INFUSION OF CARDIZEM TITRATED DOWN AT THIS TIME. PATIENTS HEARTRATE HAS DROPPED TO THE 80'S RN WILL CONTINUE TO MONITOR
--- NOTE | 2019-04-20 03:00 | NUR ---
CARDIZEM TITRATED TO 2.5MG D/T PATIENT HEARTRATE DECREASING TO THE UPPER 60'S AND LOWER 70'S RN WILL CONTINUE TO MONITOR
--- NOTE | 2019-04-20 05:00 | NUR ---
CARDIZEM DRIP[ STOPPED AT THIS TIME. PATIENTS HEARTRATE HAS MAINTAINED IN THE 80-90'S. RN WILL CONTINUE TO MONITOR
--- NOTE | 2019-04-20 08:08 | NUR ---
CARDIZEM GTT PLACED BACK ON AT 5MG/HR. BP 109/74
[2019-04-20 08:20] LABS: FREE T4 1.05 ng/dl (0.76-1.46)
[2019-04-20 08:25] LABS: THYROID STIM HORMONE (HS) 1.57 uIU/ml (0.358-4.75)
--- NOTE | 2019-04-20 10:27 | NUR ---
CONVERTED TO NSR. HEART RATE 80'S
[2019-04-20 10:47] LABS: BUN 17 mg/dl (7-24); CHLORIDE 104 mmol/L (98-107); CREATININE 1.07 mg/dL (0.70-1.30); POTASSIUM 4.1 mmol/L (3.5-5.1); SODIUM 138 mmol/L (136-145)
--- NOTE | 2019-04-20 11:00 | NUR ---
Supervisor Cytology in to talk to patient. Patient states lives at home with his . There are 0 steps in the home. There is a wheelchair ramp. Physician: Dr. Rupesh Barahona [facility]acy: [facility] Home health services: none Patient's level of ADLs: INDEPENDENT Patient has working utilities: yes DME: none Follow-up physician's appointment after d/c: he prefers to make his own follow up appt after discharge Does patient want to access PORTAL?: no Discharge plan discussed with patient and his who is sitting at his bedside. He is independent in his ADLs and ambulation. 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 Discussed home health care services and he denies any home needs at this time. When medically stable he will be discharged to home. His will transport on discharge. NORA BLAKE
--- NOTE | 2019-04-20 14:54 | NUR ---
SPOKE WITH DR. VINES REGARDING PATIENT WANTING TO BE DISCHARGED TO HOME. HE WANTS PATIENT TO BE KEPT OVERNIGHT TO OBSERVE HEART RATE. WISHES TO KEEP PATIENT IN ICU AT THIS TIME
--- NOTE | 2019-04-20 22:10 | NUR ---
1944 RESTING IN BED WITHOUT C/O'S. VSS. HEP LOCK INTACT. MONITOR REMAINS NSR. NO DISTRESS NOTED. 2199 RESTING IN BED WATCHING TV. REMAINS WIHTOUT C/O'S. CONDITION GUARDED.
--- NOTE | 2019-04-20 23:17 | NUR ---
DR NOTIFIED OF TROPONIN TRENDING DOWN 2.660.
[2019-04-21] VITALS: BP 123/79
[2019-04-21 04:00] VITALS: BP 89/53
--- NOTE | 2019-04-21 06:26 | NUR ---
PT HAS SLEPT WELL THROUGHOUT THE NIGHT. REMAINS NSR 60'S.
--- NOTE | 2019-04-21 07:12 | NUR ---
24 HR chart check completed.
[2019-04-21 08:00] VITALS: BP 120/73
--- NOTE | 2019-04-21 08:17 | NUR ---
attempted to call doctor with ABG results with no answer. attempting to call again later.
--- NOTE | 2019-04-21 13:01 | NUR ---
DR KWONG IS ACCEPTABLE FOR DC.
--- NOTE | 2019-04-21 14:47 | NUR ---
Discharge instructions reviewed with patient/family. Patient receptive and verbalizes understanding. Follow-up care arranged. Written instructions given to patient/family. GAYE SILVA
== END 2019-04-21 14:47 | disposition home or self-care (01) | DRG 309 ==
LOC: ICCU 14:52
PROVIDERS: Internal Medicine Cardiovascular Disease; ADMIT Internal Medicine
PROC: 5A2204Z Restoration of Cardiac Rhythm, Single (ICD-10-PCS; principal; 2019-04-20)
DX: I48.0 Paroxysmal atrial fibrillation (principal); I50.22 Chronic systolic (congestive) heart failure; I95.9 Hypotension, unspecified; I42.9 Cardiomyopathy, unspecified; I25.10 Atherosclerotic heart disease of native coronary artery without angina pectoris; Z95.5 Presence of coronary angioplasty implant and graft; Z79.899 Other long term (current) drug therapy; Z79.82 Long term (current) use of aspirin; Z82.49 Family history of ischemic heart disease and other diseases of the circulatory system

== ENCOUNTER 2019-10-17 13:51 | Inpatient (IN) | payer OTHER ==
[~2019-10-17] VITALS: Ht 193 cm; Wt 133.6 kg
[2019-10-17] VITALS (10 sets, daily range): BP systolic 93–115; BP diastolic 56–75
[~2019-10-17 13:51] MED LIST changes: +ALDACTONE25 MG PO; -CO Q10100 MG PO; +CO Q10200 MG PO; +LOSARTAN POTASS25 M1 PO; +METOPROLOL SUCC50 M1 PO
[2019-10-17 14:20] LABS: BASO # 0.1 10*3/uL (0.0-0.1); BASO % 0.4 % (0.0-1.0); EOS # 0.1 10*3/uL (0.0-0.4); EOS % 0.9 % (1.0-4.0); HEMATOCRIT 48.5 % (42.0-52.0); HEMOGLOBIN 15.9 g/dl (14.0-18.0); LYMPH # 1.9 10*3/uL (1.3-4.4); LYMPH % 13.9 % (27.0-41.0); MEAN CELL VOLUME 84.5 fl (80.0-94.0); MEAN CORPUSCULAR HGB 27.7 pg (27.0-31.0); MEAN CORPUSCULAR HGB CONC 32.8 g/dl (33.0-37.0); MEAN PLATELET VOLUME 10.9 fl (9.6-12.3); NEUT # 10.6 10*3/uL (2.3-7.9); NEUT % 77.5 % (47.0-73.0); PLATELET COUNT AUTOMATED 294 10*3/uL (130-400); RED BLOOD COUNT 5.74 10*6/uL (4.50-5.90); RED CELL DISTRI WIDTH 14.3 % (0-14.5); WHITE BLOOD COUNT 13.6 10*3/uL (4.8-10.8)
[2019-10-17 14:36] LABS: ALBUMIN 3.8 gm/dl (3.1-4.5); ALKALINE PHOSPHATASE 86 U/L (45-117); BUN 23 mg/dl (7-24); CHLORIDE 106 mmol/L (98-107); CREATININE 0.94 mg/dL (0.70-1.30); POTASSIUM 4.3 mmol/L (3.5-5.1); SGOT/AST 29 IU/L (3-35); SGPT/ALT 61 U/L (12-78); SODIUM 137 mmol/L (136-145); TOTAL PROTEIN 7.5 gm/dL (6.4-8.2)
[2019-10-17 14:39] LABS: TROPONIN I < 0.015 ng/ml (<0.045)
[2019-10-17] MEDS ORDERED: METOPROLOL SUCC50 M2 PO (17:08)
[2019-10-18] VITALS (12 sets, daily range): BP systolic 100–122; BP diastolic 62–74
[2019-10-18 05:43] LABS: BUN 24 mg/dl (7-24); CHLORIDE 105 mmol/L (98-107); CREATININE 0.89 mg/dL (0.70-1.30); POTASSIUM 4.1 mmol/L (3.5-5.1); SODIUM 134 mmol/L (136-145)
[2019-10-18 06:14] LABS: BASO % 0.4 % (0.0-1.0); EOS # 0.2 10*3/uL (0.0-0.4); EOS % 2.4 % (1.0-4.0); HEMATOCRIT 48.2 % (42.0-52.0); HEMOGLOBIN 15.5 g/dl (14.0-18.0); LYMPH # 2.4 10*3/uL (1.3-4.4); MEAN CELL VOLUME 85.6 fl (80.0-94.0); MEAN CORPUSCULAR HGB 27.5 pg (27.0-31.0); MEAN CORPUSCULAR HGB CONC 32.2 g/dl (33.0-37.0); MEAN PLATELET VOLUME 11.6 fl (9.6-12.3); NEUT % 62.1 % (47.0-73.0); PLATELET COUNT AUTOMATED 286 10*3/uL (130-400); RED BLOOD COUNT 5.63 10*6/uL (4.50-5.90); RED CELL DISTRI WIDTH 14.4 % (0-14.5); WHITE BLOOD COUNT 9.6 10*3/uL (4.8-10.8)
[2019-10-19] VITALS (10 sets, daily range): BP systolic 90–121; BP diastolic 56–86
[2019-10-19 05:29] LABS: CHLORIDE 108 mmol/L (98-107); POTASSIUM 3.9 mmol/L (3.5-5.1); SODIUM 137 mmol/L (136-145)
[2019-10-19 05:35] LABS: BUN 13 mg/dl (7-24)
[2019-10-19 06:07] LABS: BASO % 0.4 % (0.0-1.0); EOS # 0.2 10*3/uL (0.0-0.4); HEMATOCRIT 46.2 % (42.0-52.0); LYMPH # 2.4 10*3/uL (1.3-4.4); LYMPH % 35.3 % (27.0-41.0); MEAN CELL VOLUME 85.9 fl (80.0-94.0); MEAN CORPUSCULAR HGB 27.9 pg (27.0-31.0); MEAN CORPUSCULAR HGB CONC 32.5 g/dl (33.0-37.0); MEAN PLATELET VOLUME 11.3 fl (9.6-12.3); MONO # 0.7 10*3/uL (0.1-1.0); NEUT # 3.4 10*3/uL (2.3-7.9); PLATELET COUNT AUTOMATED 245 10*3/uL (130-400); RED BLOOD COUNT 5.38 10*6/uL (4.50-5.90); RED CELL DISTRI WIDTH 14.3 % (0-14.5); WHITE BLOOD COUNT 6.8 10*3/uL (4.8-10.8)
[2019-10-19 16:11] LABS: BUN 16 mg/dl (7-24); CHLORIDE 106 mmol/L (98-107); CREATININE 0.98 mg/dL (0.70-1.30); POTASSIUM 4.2 mmol/L (3.5-5.1); SODIUM 139 mmol/L (136-145)
[2019-10-20] VITALS (11 sets, daily range): BP systolic 96–125; BP diastolic 45–82
[2019-10-20 07:47] LABS: BUN 21 mg/dl (7-24); CHLORIDE 109 mmol/L (98-107); CREATININE 0.94 mg/dL (0.70-1.30); POTASSIUM 4.1 mmol/L (3.5-5.1); SODIUM 138 mmol/L (136-145)
[2019-10-21] VITALS: BP 116/81
[2019-10-21 04:00] VITALS: BP 106/70
[2019-10-21 08:00] VITALS: BP 108/81
[2019-10-21] MEDS ORDERED: METOPROLOL SUCC50 M1 PO (14:23)
[2019-10-21] MEDS ORDERED: SOTALOL HCL80 MG PO (14:23)
== END 2019-10-21 15:01 | disposition home or self-care (01) | DRG 308 ==
LOC: ED 13:51 → ICCU 15:01 → EDHOLD 15:01 → ICCU 15:34
PROVIDERS: Emergency Medicine; Internal Medicine Cardiovascular Disease; ADMIT Internal Medicine
PROC: 5A2204Z Restoration of Cardiac Rhythm, Single (ICD-10-PCS; principal; 2019-10-20)
DX: I48.21 Permanent atrial fibrillation (principal); I50.23 Acute on chronic systolic (congestive) heart failure; E87.0 Hyperosmolality and hypernatremia; J06.9 Acute upper respiratory infection, unspecified; I11.0 Hypertensive heart disease with heart failure; I25.10 Atherosclerotic heart disease of native coronary artery without angina pectoris; Z95.5 Presence of coronary angioplasty implant and graft; Z82.49 Family history of ischemic heart disease and other diseases of the circulatory system; R19.7 Diarrhea, unspecified; E66.9 Obesity, unspecified; Z79.899 Other long term (current) drug therapy; Z79.82 Long term (current) use of aspirin; I25.5 Ischemic cardiomyopathy

== ENCOUNTER 2019-11-01 12:48 | Inpatient (IN) | payer OTHER ==
[2019-11-01] VITALS (14 sets, daily range): BP systolic 100–136; BP diastolic 58–91
[~2019-11-01] VITALS: Ht 193 cm; Wt 126.0 kg
[~2019-11-01 12:48] MED LIST changes: +METOPROLOL SUCC50 M2 PO; +SOTALOL HCL80 MG PO
[2019-11-01 13:22] LABS: BASO # 0.1 10*3/uL (0.0-0.1); BASO % 0.7 % (0.0-1.0); EOS # 0.5 10*3/uL (0.0-0.4); EOS % 4.4 % (1.0-4.0); HEMATOCRIT 46.6 % (42.0-52.0); HEMOGLOBIN 15.5 g/dl (14.0-18.0); LYMPH # 3.3 10*3/uL (1.3-4.4); LYMPH % 31.5 % (27.0-41.0); MEAN CELL VOLUME 83.8 fl (80.0-94.0); MEAN CORPUSCULAR HGB 27.9 pg (27.0-31.0); MEAN CORPUSCULAR HGB CONC 33.3 g/dl (33.0-37.0); MEAN PLATELET VOLUME 10.3 fl (9.6-12.3); MONO # 0.8 10*3/uL (0.1-1.0); MONO % 7.5 % (3.0-9.0); NEUT # 5.7 10*3/uL (2.3-7.9); NEUT % 55.2 % (47.0-73.0); PLATELET COUNT AUTOMATED 232 10*3/uL (130-400); RED BLOOD COUNT 5.56 10*6/uL (4.50-5.90); RED CELL DISTRI WIDTH 14.1 % (0-14.5); WHITE BLOOD COUNT 10.3 10*3/uL (4.8-10.8)
[2019-11-01 13:38] LABS: ALBUMIN 3.9 gm/dl (3.1-4.5); ALKALINE PHOSPHATASE 96 U/L (45-117); BUN 14 mg/dl (7-24); CHLORIDE 109 mmol/L (98-107); CREATININE 0.96 mg/dL (0.70-1.30); SGOT/AST 34 IU/L (3-35); SGPT/ALT 64 U/L (12-78); SODIUM 139 mmol/L (136-145); TOTAL PROTEIN 7.8 gm/dL (6.4-8.2)
[2019-11-01 13:40] LABS: POTASSIUM 4.5 mmol/L (3.5-5.1); TROPONIN I < 0.015 ng/ml (<0.045)
[2019-11-02] VITALS (12 sets, daily range): BP systolic 95–131; BP diastolic 57–80
[2019-11-03] VITALS (13 sets, daily range): BP systolic 97–140; BP diastolic 63–97
== END 2019-11-03 17:04 | disposition home or self-care (01) | DRG 308 ==
LOC: ED 12:48 → EDHOLD 14:12 → ICCU 14:12 → 4NE 14:12 → ICCU 14:53 → 4NE 11-02 17:14
PROVIDERS: Emergency Medicine; ADMIT Internal Medicine
PROC: 5A2204Z Restoration of Cardiac Rhythm, Single (ICD-10-PCS; principal; 2019-11-03)
DX: I48.21 Permanent atrial fibrillation (principal); I50.23 Acute on chronic systolic (congestive) heart failure; I25.10 Atherosclerotic heart disease of native coronary artery without angina pectoris; I11.0 Hypertensive heart disease with heart failure; I25.5 Ischemic cardiomyopathy; Z95.5 Presence of coronary angioplasty implant and graft; Z82.49 Family history of ischemic heart disease and other diseases of the circulatory system; Z79.899 Other long term (current) drug therapy; Z79.82 Long term (current) use of aspirin

== ENCOUNTER 2019-11-14 11:57 | Inpatient (IN) | payer OTHER ==
[2019-11-13 20:00] VITALS: BP 121/74
[~2019-11-14] VITALS: Ht 193 cm; Wt 132.9 kg
[2019-11-14] VITALS (12 sets, daily range): BP systolic 92–121; BP diastolic 48–78
[2019-11-14 12:25] LABS: BASO # 0.1 10*3/uL (0.0-0.1); BASO % 0.6 % (0.0-1.0); EOS # 0.2 10*3/uL (0.0-0.4); EOS % 2.1 % (1.0-4.0); HEMATOCRIT 49.8 % (42.0-52.0); LYMPH # 3.3 10*3/uL (1.3-4.4); LYMPH % 35.1 % (27.0-41.0); MEAN CELL VOLUME 85.1 fl (80.0-94.0); MEAN CORPUSCULAR HGB 27.9 pg (27.0-31.0); MEAN CORPUSCULAR HGB CONC 32.7 g/dl (33.0-37.0); MEAN PLATELET VOLUME 10.4 fl (9.6-12.3); MONO # 0.8 10*3/uL (0.1-1.0); MONO % 8.5 % (3.0-9.0); NEUT % 53.4 % (47.0-73.0); PLATELET COUNT AUTOMATED 281 10*3/uL (130-400); RED BLOOD COUNT 5.85 10*6/uL (4.50-5.90); RED CELL DISTRI WIDTH 14.3 % (0-14.5); WHITE BLOOD COUNT 9.3 10*3/uL (4.8-10.8)
[2019-11-14 12:35] LABS: ACT PARTIAL THROMBO TIME 28.4 SECONDS (20.0-32.1)
[2019-11-14 12:43] LABS: LIPASE 157 U/L (73-393)
[2019-11-14 12:44] LABS: ALBUMIN 3.9 gm/dl (3.1-4.5); ALKALINE PHOSPHATASE 92 U/L (45-117); BUN 23 mg/dl (7-24); CHLORIDE 108 mmol/L (98-107); CREATININE 1.14 mg/dL (0.70-1.30); POTASSIUM 4.7 mmol/L (3.5-5.1); SGOT/AST 28 IU/L (3-35); SGPT/ALT 61 U/L (12-78); SODIUM 137 mmol/L (136-145); TOTAL PROTEIN 7.8 gm/dL (6.4-8.2)
[2019-11-14 12:45] LABS: TROPONIN I < 0.015 ng/ml (<0.045)
--- NOTE | 2019-11-14 15:53 | NUR ---
A 54, admitted to , under the services of OBI Singh MD with a diagnosis of AFIB-RVR. Chief complaint is PALPITATIONS, AFIB IN DR'S OFFICE TODAY. Patient arrived via stretcher from ER. Monitor applied. Initial assessment completed. Vital signs taken and recorded. OBI SINGH MD notified of admission to the unit. Orders received. See assessment for past medical history, medications and allergies. Patient and/or family oriented to unit. [facility]. Clothing/patient valuable form completed. RAQUEL BLEVINS
[2019-11-14] MEDS ORDERED: FISH OIL 1,0001 EAC4 PO (16:35)
[2019-11-14] MEDS ORDERED: ALDACTONE25 M1 PO (16:35)
[2019-11-14] MEDS ORDERED: COZAAR25 M1 PO (16:36)
[2019-11-14] MEDS ORDERED: LASIX10 MG/ML PO (16:37)
--- NOTE | 2019-11-14 17:13 | NUR ---
DR. RUSH'S ANSWERING SERVICE NOTIFIED OF THE CONSULT RE: AFIB/RVR AND ON CARDIZEM RAJAT.
--- NOTE | 2019-11-14 17:16 | NUR ---
DR. RUSH NOTIFIED OF THE CONSULT, HOME MEDS REVIEWED, LUIS EARL TO CONTINUE, HE WILL SEE THE PATIENT TOMORROW.
--- NOTE | 2019-11-14 18:00 | NUR ---
DR. ADAMS NOTIFIED OF CT BRAIN RESULTS CALLED BY [facility] RADIOLOGY DOCTOR.
--- NOTE | 2019-11-14 22:00 | NUR ---
PATIENT RESTING IN BED. VOICES NO COMPLAINTS AT THIS TIME. RESPIRATIONS EASY,NON LABORED. CARDIZEM DRIP INFUSIONING. BED IN LOWEST POSITION, CALL LIGHT WITHIN REACH. WILL CONTINUE TO MONITOR.
[2019-11-15] VITALS (10 sets, daily range): BP systolic 100–114; BP diastolic 54–71
--- NOTE | 2019-11-15 04:00 | NUR ---
PATIENT ASLEEP. NO SIGNS OF DISTRESS. RESPIRATIONS EASY, NON LABORED. CARDIZEM DRIP INFUSING. BED IN LOWEST POSITION,CALL LIGHT WITHIN REACH. WILL CONTINUE TO MONITOR.
--- NOTE | 2019-11-15 08:00 | NUR ---
Alert and oriented x3. Lungs clear throughout. Denies chest pain or palpitations at rest. Pt states he does have palpitations with exertion and dizziness at times with exertion. Cardizem gtt infusing at this time at 10 mg hour. BP was 102/60. See assessment.
--- NOTE | 2019-11-15 08:32 | NUR ---
Dr. Evans in and spoke with Dr. Byrne regarding pt.
--- NOTE | 2019-11-15 12:41 | NUR ---
Architectural Renderer in to talk to patient. Patient states lives at HOME with FAMILY. There are NO steps in the home. Physician: JASMYN [facility] Home health services: NONE Patient's level of ADLs: INDEPENDENT Patient has working utilities: YES DME: NONE Follow-up physician's appointment after d/c: PREFERS TO MAKE OWN ON DISCHARGE Does patient want to access PORTAL?: NO Discharge plan PT LIVES AT HOME WITH HIS FAMILY AND IS INDEPENDENT IN HIS CARE. DENIES HE WILL HAVE NEEDS ON DISCHARGE. STATES HE WORKS. PLAN IS TO RETURN HOME WHEN MEDICALLY STABLE. WILL CONTINUE TO FOLLOW. STATES HIS WILL TAKE HIM HOME.. BENEDICTO MARIE
--- NOTE | 2019-11-15 12:41 | NUR ---
IV cardizem stopped at this time per order to stop 1 hour after po cardizem started. Hr remains 70-80's.
--- NOTE | 2019-11-15 14:26 | NUR ---
solar installer technician called and states hr in 130's. Pt up in bathroom. After laying back in bed HR 110's shortly after.
--- NOTE | 2019-11-15 21:31 | NUR ---
PATIENT'S BLOOD PRESSURE 98/[address] VINES OF BLOOD PRESSURE AND THAT HE GETS TOPRIL 50MG AND SOTALOL [address] VINES ORDERED A 500 CC BOLUS OF NORMAL SALINE [facility].
--- NOTE | 2019-11-15 21:38 | NUR ---
NOTIFIED DR DALAL'S ANSWERING SERVICE OF BLOOD PRESSURE/MEDS AND THAT I NEEDED A CALL BACK. AWAITING CALL BACK.
--- NOTE | 2019-11-15 21:42 | NUR ---
DR QUINTANA CALLED BACK. ORDERS RECIEVED FROM HIM TO GIVE THE 500 CC BOLUS OF NORMAL SALINE AND THE SOTALOL 80 MG. HE WANTS ME TO HOLD THE 0000 DOSE OF CARDIZEM AND ALSO HOLD TOPROL 50 MG FOR NOW. RECHECK BLOOD PRESSURE AFTER BOLUS AND SOTALOL AND IF SYSTOLIC BLOOD PRESSURE IS OVER 110 THEN I AM TO ADMINISTER THE TOPROL. WILL CARRY OUT ORDERS RECIEVED FROM DR QUINTANA.
--- NOTE | 2019-11-15 23:49 | NUR ---
PATIENT'S BLOOD PRESSURE 112/60. HEART RATE ANYWHERE FROM 88-130'S. NOTIFIED DR QUINTANA OF BOTH. HE GAVE ORDERS TO GIVE TOPROL 50MG AND CONTINUE TO HOLD CARDIZEM.
[2019-11-16] VITALS (7 sets, daily range): BP systolic 100–129; BP diastolic 60–91
--- NOTE | 2019-11-16 10:09 | NUR ---
Notified Dr. Byrne of bp as he requested. Recheck of bp at this time was 108/60. States to give additional 50 mg of toprol, and hold cozaar and aldactone. May given betapace at this time as well.
--- NOTE | 2019-11-16 11:38 | NUR ---
BP 102/70. Cardizem given at this time.hr 100-120's Remains afib.
--- NOTE | 2019-11-16 11:57 | NUR ---
Notified Dr. Byrne that pt had cardizem bp was 102/70. Noted the perimeters to hold if < SBP 110 after med was given. HR is still elevated 100-120's at rest. Dr. Byrne states it was ok to give due to elevated HR.
--- NOTE | 2019-11-16 11:59 | NUR ---
Dr. Byrne spoke with Dr. Barahona regarding pt. Pt states that Dr. Barahona saw him this am and stated that there is a physican at [place] that is still doing ablasions on pt. Dr. Byrne states his group is not permitted at this time to do ablasion due to high amount of Co-Vid-[address] [place] Byrne spoke with Dr. Barahona and states ok to transfer from his standpoint to [place] if pt decides to go that route.
--- NOTE | 2019-11-16 20:41 | NUR ---
PATIENT RESTING IN BED. C/O SOB WITH MINIMAL EXERTION, HR 120S-150S AT REST. DENIES CP/PRESSURE/PALPATIONS. MBP 120/60. TROPOL XL GIVEN EARLY DUE TO HIGH HR. WILL CONTINUE TO MONITOR.
--- NOTE | 2019-11-16 21:00 | NUR ---
RECEIVED ORDERS FROM ,1X DOSE CARDIZEM 60MG PO, AND 1X DOSE OF DIG 0.25MG IV. WILL CONTINUE TO MONITOR.
--- NOTE | 2019-11-16 22:00 | NUR ---
IV IN LEFT HAND BAD. TAKEN OUT. NEW IV STARTED IN LEFT HAND. PATIENT TOLERATED WELL. WILL CONTINUE TO MONITOR.
[2019-11-17] VITALS: BP 107/58
--- NOTE | 2019-11-17 03:19 | NUR ---
PATIENT AWAKE LAYING IN BED. VOICES NO COMPLAINTS. RESPIRATIONS EASY, NON LABORED. HR IN THE 90S. BED IN LOWEST POSITION, CALL LIGHT WITHIN REACH. WILL CONTINUE TO MONITOR.
[2019-11-17 06:06] VITALS: BP 98/60
[2019-11-17 06:07] LABS: BASO # 0.1 10*3/uL (0.0-0.1); BASO % 0.5 % (0.0-1.0); EOS # 0.3 10*3/uL (0.0-0.4); HEMATOCRIT 47.7 % (42.0-52.0); LYMPH # 3.6 10*3/uL (1.3-4.4); LYMPH % 33.1 % (27.0-41.0); MEAN CELL VOLUME 84.9 fl (80.0-94.0); MEAN CORPUSCULAR HGB 27.9 pg (27.0-31.0); MEAN CORPUSCULAR HGB CONC 32.9 g/dl (33.0-37.0); MEAN PLATELET VOLUME 10.8 fl (9.6-12.3); MONO % 9.2 % (3.0-9.0); NEUT # 5.9 10*3/uL (2.3-7.9); NEUT % 53.7 % (47.0-73.0); PLATELET COUNT AUTOMATED 232 10*3/uL (130-400); RED BLOOD COUNT 5.62 10*6/uL (4.50-5.90); RED CELL DISTRI WIDTH 14.3 % (0-14.5)
--- NOTE | 2019-11-17 06:15 | NUR ---
BP 98/60 HR 70S-110S. PO LUIS HELD AT THIS TIME.
[2019-11-17 06:29] LABS: BUN 15 mg/dl (7-24); CHLORIDE 107 mmol/L (98-107); CREATININE 0.95 mg/dL (0.70-1.30); SODIUM 138 mmol/L (136-145)
[2019-11-17 08:00] VITALS: BP 110/60
[2019-11-17] MEDS ORDERED: ALDACTONE25 MG PO (08:16)
[2019-11-17] MEDS ORDERED: LOSARTAN POTASS25 M1 PO (08:16)
[2019-11-17] MEDS ORDERED: METOPROLOL SUC100 M1 PO (08:16)
[2019-11-17 10:00] VITALS: BP 110/60
--- NOTE | 2019-11-17 10:15 | NUR ---
IV DIGOXIN ADMINISTERED PER ORDER. PT HR CURRENTLY 114.
--- NOTE | 2019-11-17 10:36 | NUR ---
REPORT GIVEN TO RECIEVING NURSE AT [facility].
--- NOTE | 2019-11-17 11:45 | NUR ---
PT DISCHARGED TO [place] FOR FURTHER CARE. [facility] TRANSPORTED.
== END 2019-11-17 11:45 | disposition short-term general hospital (02) | DRG 310 ==
LOC: ED 11:57 → EDHOLD 14:59 → 4E 14:59
PROVIDERS: Emergency Medicine; ADMIT Internal Medicine
DX: I48.21 Permanent atrial fibrillation (principal); I25.10 Atherosclerotic heart disease of native coronary artery without angina pectoris; G47.33 Obstructive sleep apnea (adult) (pediatric); I95.9 Hypotension, unspecified; I42.8 Other cardiomyopathies; I48.0 Paroxysmal atrial fibrillation; E66.9 Obesity, unspecified; I50.9 Heart failure, unspecified; I11.0 Hypertensive heart disease with heart failure; Z95.5 Presence of coronary angioplasty implant and graft; Z68.35 Body mass index [BMI] 35.0-35.9, adult; Z82.49 Family history of ischemic heart disease and other diseases of the circulatory system; Z79.899 Other long term (current) drug therapy; Z79.82 Long term (current) use of aspirin; Z79.01 Long term (current) use of anticoagulants

== ENCOUNTER 2021-05-04 19:41 | Emergency (ER) | payer OTHER ==
[~2021-05-04 19:41] MED LIST changes: +ALDACTONE25 M1 PO; +COZAAR25 M1 PO; +FISH OIL 1,0001 EAC4 PO; +LASIX10 MG/ML PO
[2021-05-04 22:10] LABS: BASO % 0.2 % (0.0-1.0); HEMATOCRIT 49.2 % (42.0-52.0); LYMPH # 1.3 10*3/uL (1.3-4.4); MEAN CORPUSCULAR HGB 27.2 pg (27.0-31.0); MEAN CORPUSCULAR HGB CONC 32.7 g/dl (33.0-37.0); MEAN PLATELET VOLUME 10.9 fl (9.6-12.3); MONO # 0.4 10*3/uL (0.1-1.0); MONO % 6.4 % (3.0-9.0); NEUT # 4.4 10*3/uL (2.3-7.9); NEUT % 72.1 % (47.0-73.0); PLATELET COUNT AUTOMATED 133 10*3/uL (130-400); RED BLOOD COUNT 5.93 10*6/uL (4.50-5.90); RED CELL DISTRI WIDTH 13.7 % (0-14.5); WHITE BLOOD COUNT 6.1 10*3/uL (4.8-10.8)
[2021-05-04 22:24] LABS: ALBUMIN 3.4 gm/dl (3.1-4.5); ALKALINE PHOSPHATASE 122 U/L (45-117); BUN 21 mg/dl (7-24); CHLORIDE 105 mmol/L (98-107); CREATININE 1.07 mg/dL (0.70-1.30); SGOT/AST 74 IU/L (3-35); SGPT/ALT 101 U/L (12-78); SODIUM 138 mmol/L (136-145); TOTAL PROTEIN 7.5 gm/dL (6.4-8.2)
[2021-05-04] MEDS ORDERED: ZOFRAN4 MG PO (22:37)
== END 2021-05-04 22:32 | disposition home or self-care (01) ==
LOC: ED 19:41
PROVIDERS: Nurse Practitioner Family
DX: U07.1 COVID-19 (principal); F17.200 Nicotine dependence, unspecified, uncomplicated; I50.9 Heart failure, unspecified; I25.10 Atherosclerotic heart disease of native coronary artery without angina pectoris; Z79.899 Other long term (current) drug therapy; Z79.82 Long term (current) use of aspirin; I48.91 Unspecified atrial fibrillation; Z95.5 Presence of coronary angioplasty implant and graft

== ENCOUNTER 2021-08-30 18:02 | Emergency (ER) | payer OTHER ==
[~2021-08-30] VITALS: Ht 193 cm; Wt 131.5 kg
[~2021-08-30 18:02] MED LIST changes: +ZOFRAN4 MG PO
[2021-08-30 20:15] LABS: BASO # 0.1 10*3/uL (0.0-0.1); BASO % 0.4 % (0.0-1.0); EOS # 0.1 10*3/uL (0.0-0.4); HEMATOCRIT 47.5 % (42.0-52.0); LYMPH # 1.8 10*3/uL (1.3-4.4); LYMPH % 15.5 % (27.0-41.0); MEAN CELL VOLUME 83.2 fl (80.0-94.0); MEAN CORPUSCULAR HGB 28.4 pg (27.0-31.0); MEAN CORPUSCULAR HGB CONC 34.1 g/dl (33.0-37.0); MEAN PLATELET VOLUME 11.1 fl (9.6-12.3); MONO # 0.7 10*3/uL (0.1-1.0); MONO % 6.1 % (3.0-9.0); NEUT # 9.1 10*3/uL (2.3-7.9); NEUT % 76.5 % (47.0-73.0); PLATELET COUNT AUTOMATED 218 10*3/uL (130-400); RED BLOOD COUNT 5.71 10*6/uL (4.50-5.90); RED CELL DISTRI WIDTH 13.1 % (0-14.5); WHITE BLOOD COUNT 11.8 10*3/uL (4.8-10.8)
[2021-08-30 20:26] LABS: ACT PARTIAL THROMBO TIME 23.5 SECONDS (20.0-32.1)
[2021-08-30 20:31] LABS: ALKALINE PHOSPHATASE 121 U/L (45-117); BUN 15 mg/dl (7-24); CHLORIDE 109 mmol/L (98-107); CREATININE 0.95 mg/dL (0.70-1.30); SGOT/AST 99 IU/L (3-35); SGPT/ALT 119 U/L (12-78); SODIUM 139 mmol/L (136-145)
[2021-08-30] MEDS ORDERED: PERCOCET 5-3251 EACH PO (22:46)
== END 2021-08-30 23:30 | disposition home or self-care (01) ==
LOC: ED 18:02
PROVIDERS: Nurse Practitioner Family
DX: S82.092A Other fracture of left patella, initial encounter for closed fracture (principal); S20.212A Contusion of left front wall of thorax, initial encounter; S09.90XA Unspecified injury of head, initial encounter; I25.2 Old myocardial infarction; I48.91 Unspecified atrial fibrillation; I50.9 Heart failure, unspecified; I11.0 Hypertensive heart disease with heart failure; Z79.82 Long term (current) use of aspirin; Z79.899 Other long term (current) drug therapy; Z98.890 Other specified postprocedural states; V49.49XA Driver injured in collision with other motor vehicles in traffic accident, initial encounter; Y93.89 Activity, other specified; Y92.89 Other specified places as the place of occurrence of the external cause; Y99.8 Other external cause status

== ENCOUNTER → 2021-09-12 | Outpatient (CLI) | payer OTHER ==
[~2021-09-12] MED LIST changes: +PERCOCET 5-3251 EACH PO
== END | disposition home or self-care (01) ==
LOC: ORTHO 01:51
PROVIDERS: ATTEND Orthopaedic Surgery
DX: M17.11 Unilateral primary osteoarthritis, right knee (principal); M79.89 Other specified soft tissue disorders; M25.761 Osteophyte, right knee; S82.034D Nondisplaced transverse fracture of right patella, subsequent encounter for closed fracture with routine healing; X58.XXXD Exposure to other specified factors, subsequent encounter

== ENCOUNTER → 2021-09-26 | Outpatient (CLI) | payer OTHER | END | disposition home or self-care (01) | LOC: ORTHO 00:18 | PROVIDERS: ATTEND Orthopaedic Surgery | DX: M79.89 Other specified soft tissue disorders (principal); S82.034D Nondisplaced transverse fracture of right patella, subsequent encounter for closed fracture with routine healing; X58.XXXD Exposure to other specified factors, subsequent encounter ==

== ENCOUNTER → 2021-10-27 | Outpatient (CLI) | payer OTHER | END | disposition home or self-care (01) | LOC: ORTHO 00:38 | PROVIDERS: ATTEND Orthopaedic Surgery | DX: S82.034D Nondisplaced transverse fracture of right patella, subsequent encounter for closed fracture with routine healing (principal); X58.XXXD Exposure to other specified factors, subsequent encounter ==

== ENCOUNTER → 2023-08-10 | Outpatient (CLI) | payer OTHER ==
[2023-08-10 16:00] LABS: CHOLESTEROL 226 mg/dL (<200); TRIGLYCERIDES 543 mg/dl (<150)
== END | disposition home or self-care (01) ==
LOC: LAB 15:25
PROVIDERS: ATTEND Internal Medicine
DX: Z13.0 Encounter for screening for diseases of the blood and blood-forming organs and certain disorders involving the immune mechanism (principal); Z13.1 Encounter for screening for diabetes mellitus; Z13.21 Encounter for screening for nutritional disorder; Z13.220 Encounter for screening for lipoid disorders; Z13.228 Encounter for screening for other metabolic disorders; Z13.29 Encounter for screening for other suspected endocrine disorder; Z13.6 Encounter for screening for cardiovascular disorders; Z13.89 Encounter for screening for other disorder; Z13.9 Encounter for screening, unspecified; I10 Essential (primary) hypertension; E55.9 Vitamin D deficiency, unspecified

== ENCOUNTER → 2024-11-14 | Outpatient (CLI) | payer OTHER ==
[2024-11-14 12:12] LABS: BASO # 0.1 10*3/uL (0.0-0.1); BASO % 0.6 % (0.0-1.0); EOS # 0.2 10*3/uL (0.0-0.4); EOS % 3.1 % (1.0-4.0); HEMATOCRIT 47.3 % (42.0-52.0); MEAN CELL VOLUME 82.5 fl (80.0-94.0); MEAN CORPUSCULAR HGB 27.7 pg (27.0-31.0); MEAN CORPUSCULAR HGB CONC 33.6 g/dl (33.0-37.0); MEAN PLATELET VOLUME 10.2 fl (9.6-12.3); MONO # 0.6 10*3/uL (0.1-1.0); MONO % 7.9 % (3.0-9.0); NEUT # 4.4 10*3/uL (2.3-7.9); NEUT % 56.6 % (47.0-73.0); PLATELET COUNT AUTOMATED 198 10*3/uL (130-400); RED BLOOD COUNT 5.73 10*6/uL (4.50-5.90); RED CELL DISTRI WIDTH 13.3 % (0-14.5); WHITE BLOOD COUNT 7.8 10*3/uL (4.8-10.8)
[2024-11-14 12:41] LABS: ALKALINE PHOSPHATASE 100 U/L (46-116); BUN 14 mg/dl (9-23); CHLORIDE 104 mmol/L (98-107); CHOLESTEROL 204 mg/dL (<200); FREE T4 0.93 ng/dl (0.89-1.76); LDL CHOLESTEROL 112 mg/dL (9-159); POTASSIUM 4.1 mmol/L (3.4-5.1); SGPT/ALT 58 U/L (5-49); TOTAL PROTEIN 7.5 gm/dL (6.0-8.0); TRIGLYCERIDES 292 mg/dl (<150); VITAMIN D, 25-HYDROXY 28.9 ng/mL (30-100)
== END | disposition home or self-care (01) ==
LOC: LAB 11:49
PROVIDERS: ATTEND Internal Medicine
DX: E55.9 Vitamin D deficiency, unspecified (principal); D51.9 Vitamin B12 deficiency anemia, unspecified; Z13.0 Encounter for screening for diseases of the blood and blood-forming organs and certain disorders involving the immune mechanism; Z13.1 Encounter for screening for diabetes mellitus; Z13.21 Encounter for screening for nutritional disorder; Z13.220 Encounter for screening for lipoid disorders; Z13.228 Encounter for screening for other metabolic disorders; Z13.6 Encounter for screening for cardiovascular disorders; Z13.89 Encounter for screening for other disorder